=== PATIENT | female | born 1935 | race Caucasian/White ===

== ENCOUNTER 2017-08-28 12:28 | Observation (INO) | payer OTHER, BC ==
[~2017-08-28] VITALS: Ht 162.6 cm; Wt 76.8 kg
[2017-08-28 13:53] LABS: BASOPHIL COUNT 0.1 K/uL (0-0.1); EOSINOPHIL (%) 1.1 % (0-5); EOSINOPHIL COUNT 0.1 K/uL (0-0.3); HEMATOCRIT 40.4 % (36.0-46.0); IMMATURE GRANULOCYTE (%) 0.2 % (0.0-0.7); INSTRUMENT ABS NEUTROPHIL CT 7.5 K/uL; LYMPHOCYTE COUNT 1.4 K/uL (1.0-2.8); MCH 29.4 PG (29.0-34.0); MCHC 32.2 G/DL (30.0-36.0); MCV 91.4 FL (83-99); MEAN PLAT.VOLUME 9.8 uM^3 (9.5-12.4); MONOCYTE (%) 5.9 % (3-12); MONOCYTE COUNT 0.6 K/uL (0-0.8); NEUTROPHIL (%) 77.4 % (45-76); NEUTROPHIL COUNT 7.5 K/uL (1.8-6.4); PLATELET COUNT 308 K/uL (156-360); RBC DIS.WIDTH-CV 12.4 % (11.8-14.6); RBC DIS.WIDTH-SD 41.7 % (39-53); RED BLOOD COUNT 4.42 M/uL (3.80-5.20); WHITE BLOOD COUNT 9.7 K/uL (4.1-10.2)
[2017-08-28 14:01] LABS: CHLORIDE 104 mEq/L (99-109); POTASSIUM 4.2 mEq/L (3.7-5.4); SODIUM 141 mEq/L (136-147)
[2017-08-28 14:02] LABS: GLUCOSE 105 mg/dL (70-99)
[2017-08-28 14:03] LABS: PROTHROMBIN TIME 11.5 SEC (10.2-12.9)
[2017-08-28 14:04] LABS: ANION GAP 10 MEQ/L (2-14)
[2017-08-28 14:06] LABS: GFR ESTIMATE (CALCULATED) 57 mL/min/
[2017-08-28 14:07] LABS: UREA NITROGEN (BUN) 23 mg/dL (9-23)
[2017-08-28 15:47] LABS: TROP-I INTERPRETATION NEGATIVE; TROPONIN-I < 0.01 ng/mL (0.0-0.30)
[2017-08-28] MEDS ORDERED: LEVOTHYROXINE100 MCG PO (15:54)
[2017-08-28] MEDS ORDERED: FLONASE16 G1 BOTH NARES (15:54)
[2017-08-28] MEDS ORDERED: HYDROCHLOROTHIA25 MG PO (15:55)
[2017-08-28] MEDS ORDERED: ATENOLOL50 MG PO (15:55)
[2017-08-28] MEDS ORDERED: PROAIR HFA8.5 GM IH (15:56)
[2017-08-28 19:25] VITALS: BP 174/80
[2017-08-28 22:22] LABS: TROP-I INTERPRETATION NEGATIVE; TROPONIN-I < 0.01 ng/mL (0.0-0.30)
[2017-08-28 23:09] VITALS: BP 128/60
[2017-08-29 03:54] VITALS: BP 130/66
[2017-08-29 04:23] LABS: TROP-I INTERPRETATION NEGATIVE; TROPONIN-I < 0.01 ng/mL (0.0-0.30)
[2017-08-29 05:36] LABS: HDL CHOLESTEROL 41 MG/DL (Desirable>=50); LDL CHOLESTEROL 122 mg/dL (Desirable<100); NON-HDL CHOLESTEROL 144 mg/dL (Desirable<160); TOTAL CHOLESTEROL 185 mg/dL (Desirable<200); TRIGLYCERIDES 112 MG/DL (Normal: <150)
[2017-08-29] MEDS ORDERED: PRAVASTATIN SOD80 MG PO (11:33)
[2017-08-29] MEDS ORDERED: ASPIR-LOW81 MG PO (11:33)
[2017-08-29 12:19] VITALS: BP 121/57
== END 2017-08-29 14:07 | disposition home or self-care (01) ==
LOC: EME 12:28 → EDOF 15:55 → 5WEST 15:55 → ENRESERV 16:07 → 5WEST 19:04
PROVIDERS: Emergency Medicine; Internal Medicine
DX: G45.9 Transient cerebral ischemic attack, unspecified (principal); I10 Essential (primary) hypertension; E03.9 Hypothyroidism, unspecified; M19.90 Unspecified osteoarthritis, unspecified site; J45.909 Unspecified asthma, uncomplicated; I27.20 Pulmonary hypertension, unspecified; I35.0 Nonrheumatic aortic (valve) stenosis; I65.23 Occlusion and stenosis of bilateral carotid arteries; Z79.82 Long term (current) use of aspirin; Z88.0 Allergy status to penicillin; Z88.1 Allergy status to other antibiotic agents; Z91.018 Allergy to other foods; Z91.048 Other nonmedicinal substance allergy status
CPT/HCPCS: 70450; 70551; 80048; 80061; 84484; 85025; 85610; 93306; 93880; 99281; 99285; G0378